=== PATIENT | male | born 1995 ===

== ENCOUNTER 2020-04-24 01:30 | Emergency (ER) | payer OTHER ==
[2020-04-24] MEDS ORDERED: LEVETIRACETAM 500 MG/5 ML VIAL IV ONE (02:01)
[2020-04-24] MEDS ORDERED: NA CHLORIDE 0.9% 500 ML ONE (02:02)
[2020-04-24] MEDS ORDERED: KETOROLAC 30 MG/ML INJ ONE (02:02)
[2020-04-24 02:05] LABS: Absolute Lymphocytes (CBC) 2.1 K/uL (0.7-4.9); Basophils % 0.5 % (0-1.3); Hematocrit 41.5 % (39.6-49.0); Lymphocytes % 19.5 % (15.3-44.8); MPV 8.8 fL (7.6-11.3)
[2020-04-24 02:33] LABS: Albumin 4.2 g/dL (3.4-5.0); Bilirubin Total 0.4 mg/dL (0.2-1.0); Magnesium 2.4 mg/dL (1.8-2.4); Potassium 3.7 mmol/L (3.5-5.1); Protein, Total 8.2 g/dL (6.4-8.2)
--- NOTE | 2020-04-24 03:08 | ER ---
Nurse's Notes [facility] Name: Victor Manuel Gant Age: 24 yrs Sex: Male : 1995 Arrival Date: 04/24/2020 Time: 01:38 Bed 7 Private MD: Diagnosis: Epileptic seizures related to external causes, not intractable Presentation: 04/24 01:35 Chief complaint: EMS states: patient came out from shower the guard saw him seizing rr5 lasted for 4 minutes. he has history of seizure but not taking medication. 01:35 Method Of Arrival: EMS: [email or web address] rr5 01:35 Coronavirus screen: Client denies travel out of the [place] in the last 14 days. At this rr5 time, the client does not indicate any symptoms associated with coronavirus-19. Ebola Screen: Patient negative for fever greater than or equal to 101.5 degrees Fahrenheit, and additional compatible Ebola Virus Disease symptoms Patient denies exposure to infectious person. Patient denies travel to an Ebola-affected area in the 21 days before illness onset. Initial Sepsis Screen: Does the patient meet any 2 criteria? No. Patient's initial sepsis screen is negative. Does the patient have a suspected source of infection? No. Patient's initial sepsis screen is negative. Risk Assessment: Do you want to hurt yourself or someone else? Patient reports no desire to harm self or others. Onset of symptoms was April 24, 2020. Care prior to arrival: IV initiated. 18 GA, in the right forearm, Glucose check: 133. 01:35 Acuity: JAMES 3 rr5 Historical: - Allergies: 01:41 No Known Allergies; rr5 - Home Meds: 01:41 None [Active]; rr5 - PMHx: 01:41 Seizures; rr5 - PSHx: 01:41 None; rr5 - Immunization history:: Adult Immunizations up to date. - Social history:: Smoking status: unknown Patient/guardian denies using alcohol, street drugs. Screenin:41 Abuse screen: Denies threats or abuse. Denies injuries from another. Nutritional rr5 screening: No deficits noted. Tuberculosis screening: No symptoms or risk factors identified. Fall Risk Fall in past 12 months (25 points). Secondary diagnosis (15 points) seizures, IV access (20 points). Total Rojas Fall Scale indicates High Risk Score (45 or more points). Fall prevention measures have been instituted. Side Rails Up X 2 Placed Close to Nursing Station Frequent Obs/Assessments Occuring As available patient and family educated on Fall Prevention Program and Strategies. Assessment: 01:35 General: Appears in no apparent distress. comfortable, Behavior is calm, cooperative, rr5 appropriate for age. Pain: Complains of pain in head Pain currently is 5 out of 10 on a pain scale. Quality of pain is described as aching, Pain began suddenly, Is intermittent. Neuro: Level of Consciousness is awake, alert, obeys commands, Oriented to person, place, time, Reports headache. Cardiovascular: Capillary refill < 3 seconds Patient's skin is warm and dry. Respiratory: Airway is patent Respiratory effort is even, unlabored, Respiratory pattern is regular, symmetrical. GI: No signs and/or symptoms were reported involving the gastrointestinal system. : No signs and/or symptoms were reported regarding the genitourinary system. EENT: No signs and/or symptoms were reported regarding the EENT system. Derm: Skin is intact, is healthy with good turgor, Skin temperature is warm. Musculoskeletal: Circulation, motion, and sensation intact. Capillary refill < 3 seconds. 02:35 Reassessment: Patient appears in no apparent distress at this time. Patient is alert, rr5 oriented x 3, equal unlabored respirations, skin warm/dry/pink. alert chatting with guard driver. 03:14 Reassessment: Patient appears in no apparent distress at this time. Patient is alert, rr5 oriented x 3, equal unlabored respirations, skin warm/dry/pink. discharge instruction given and explained without complaints made Patient states feeling better. Patient states symptoms have improved. Vital Signs: 01:35 BP 128 / 54; Pulse 80; Resp 16; Temp 98.2; Pulse Ox 98% ; Weight 79.38 kg; Height 6 ft. rr5 1 in. (185.42 cm); Pain 5/10; 02:30 BP 121 / 69; Pulse 79; Resp 15; Pulse Ox 98% ; rr5 03:16 BP 112 / 64; Pulse 75; Resp 17; Pulse Ox 99% ; rr5 01:35 Body Mass Index 23.09 (79.38 kg, 185.42 cm) rr5 [place] Coma Score: 01:35 Eye Response: spontaneous(4). Verbal Response: oriented(5). Motor Response: obeys rr5 commands(6). Total: 15. ED Course: 01:35 Arm band placed on right wrist. rr5 01:38 Patient arrived in ED. rr5 01:39 Kevin Hanley, RN is Primary Nurse. rr5 01:41 Maintain EMS IV. Dressing intact. Good blood return noted. Site clean \T\ dry. Gauge \T\ rr 5 site: G18 right Forearm. 01:41 Patient has correct armband on for positive identification. Bed in low position. Call rr5 light in reach. Side rails up X2. Seizure precautions initiated. Pulse ox on. NIBP on. 01:42 Nasir Hercules MD is Attending Physician. tw4 02:15 Triage completed. rr5 03:15 No provider procedures requiring assistance completed. IV discontinued, intact, rr5 bleeding controlled, No redness/swelling at site. Pressure dressing applied. Administered Medications: 01:58 Drug: TORadol 30 mg Route: IVP; Site: right forearm; rr5 02:55 Follow up: Response: No adverse reaction rr5 01:58 Drug: Keppra 1000 mg Route: IV; Rate: bolus; Site: right forearm; rr5 02:55 Follow up: Response: No adverse reaction; IV Status: Completed infusion; IV Intake: rr5 500ml Intake: 02:55 IV: 500ml; Total: 500ml. rr5 Outcome: 03:08 Discharge ordered by . tw4 03:15 Discharged to Law Enforcement rr5 03:15 Condition: stable 03:15 Discharge instructions given to patient, Instructed on discharge instructions, follow up and referral plans. medication usage, Demonstrated understanding of instructions, follow-up care, medications, Prescriptions given X 1. 03:18 Patient left the ED. rr5 Signatures: Nasir Hercules MD MD tw4 Kevin Hanley, RN RN rr5
--- NOTE | 2020-04-24 03:09 | EDPHYS ---
Physician Documentation [facility] Name: Victor Manuel Gant Age: 24 yrs Sex: Male : 1995 Arrival Date: 04/24/2020 Time: 01:38 Bed 7 Private MD: ED Physician Nasir Hercules HPI: 04/24 02:14 This 24 yrs old Male presents to ER via Unassigned with complaints of Seizure. tw4 02:14 The patient presents after having a single isolated seizure. Character of seizure(s): tw4 Loss of consciousness: it is not known if the patient experienced loss of consciousness. Seizure onset: just prior to arrival. Context: the seizure(s) was witnessed, by a bystander. Seizure Hx: it is unknown whether or not the patient has a previous seizure history. Associated injury: Head/face:. The patient has experienced similar episodes in the past, a few times. Historical: - Allergies: 01:41 No Known Allergies; rr5 - Home Meds: 01:41 None [Active]; rr5 - PMHx: 01:41 Seizures; rr5 - PSHx: 01:41 None; rr5 - Immunization history:: Adult Immunizations up to date. - Social history:: Smoking status: unknown Patient/guardian denies using alcohol, street drugs. ROS: 02:14 Constitutional: Negative for fever, chills, and weight loss, Cardiovascular: Negative tw4 for chest pain, palpitations, and edema, Respiratory: Negative for shortness of breath, cough, wheezing, and pleuritic chest pain, Abdomen/GI: Negative for abdominal pain, nausea, vomiting, diarrhea, and constipation, Back: Negative for injury and pain, MS/Extremity: Negative for injury and deformity, Skin: Negative for injury, rash, and discoloration. 02:14 Neuro: Positive for seizure activity. Exam: 02:14 Constitutional: This is a well developed, well nourished patient who is awake, alert, tw4 and in no acute distress. Chest/axilla: Normal chest wall appearance and motion. Nontender with no deformity. No lesions are appreciated. Cardiovascular: Regular rate and rhythm with a normal S1 and S2. No gallops, murmurs, or rubs. Normal PMI, no JVD. No pulse deficits. Respiratory: Lungs have equal breath sounds bilaterally, clear to auscultation and percussion. No rales, rhonchi or wheezes noted. No increased work of breathing, no retractions or nasal flaring. 02:14 Back: No spinal tenderness. No costovertebral tenderness. Full range of motion. MS/ Extremity: Pulses equal, no cyanosis. Neurovascular intact. Full, normal range of motion. Neuro: Awake and alert, GCS 15, oriented to person, place, time, and situation. Cranial nerves II-XII grossly intact. Motor strength 5/5 in all extremities. Sensory grossly intact. Cerebellar exam normal. Normal gait. 02:14 Head/face: Noted is contusion. Vital Signs: 01:35 BP 128 / 54; Pulse 80; Resp 16; Temp 98.2; Pulse Ox 98% ; Weight 79.38 kg; Height 6 ft. rr5 1 in. (185.42 cm); Pain 5/10; 02:30 BP 121 / 69; Pulse 79; Resp 15; Pulse Ox 98% ; rr5 03:16 BP 112 / 64; Pulse 75; Resp 17; Pulse Ox 99% ; rr5 01:35 Body Mass Index 23.09 (79.38 kg, 185.42 cm) rr5 [place] Coma Score: 01:35 Eye Response: spontaneous(4). Verbal Response: oriented(5). Motor Response: obeys rr5 commands(6). Total: 15. MDM: 01:42 Patient medically screened. tw4 03:10 Differential diagnosis: seizure. Data reviewed: vital signs, nurses notes. Data tw4 interpreted: Pulse oximetry: Interpretation: normal. Counseling: I had a detailed discussion with the patient and/or guardian regarding: the historical points, exam findings, and any diagnostic results supporting the discharge/admit diagnosis, lab results. Special discussion: I discussed with the patient/guardian in detail that at this point there is no indication for admission to the hospital. It is understood, however, that if the symptoms persist or worsen the patient needs to return immediately for re-evaluation. 04/24 01:43 Order name: CBC with Diff tw4 04/24 01:43 Order name: CMP tw4 04/24 01:43 Order name: Magnesium tw4 04/24 01:44 Order name: CBC with Automated Diff EDMS 04/24 01:44 Order name: Comprehensive Metabolic Panel EDMS 04/24 01:44 Order name: Magnesium EDMS Administered Medications: 01:58 Drug: TORadol 30 mg Route: IVP; Site: right forearm; rr5 02:55 Follow up: Response: No adverse reaction rr5 01:58 Drug: Keppra 1000 mg Route: IV; Rate: bolus; Site: right forearm; rr5 02:55 Follow up: Response: No adverse reaction; IV Status: Completed infusion; IV Intake: rr5 500ml Disposition: 04/24/20 03:08 Discharged to Home. Impression: Epileptic seizures related to external causes, not intractable. - Condition is Stable. - Discharge Instructions: Seizure, Adult. - Prescriptions for Keppra 500 mg Oral Tablet - take 1 tablet by ORAL route every 12 hours; 20 tablet. - Medication Reconciliation Form, Thank You Letter, Antibiotic Education, Prescription Opioid Use form. - Follow up: Private Physician; When: Upon discharge from the Emergency Department; Reason: Recheck today's complaints, Continuance of care, Re-evaluation by your physician. - Problem is new. - Symptoms have improved. Signatures: Dispatcher [employer] EDNasir Barrera MD MD tw4 Kevin Hanley RN RN rr5 Corrections: (The following items were deleted from the chart) 03:18 03:08 04/24/2020 03:08 Discharged to Home. Impression: Epileptic seizures related to rr5 external causes, not intractable. Condition is Stable. Forms are Medication Reconciliation Form, Thank You Letter, Antibiotic Education, Prescription Opioid Use. Follow up: Private Physician; When: Upon discharge from the Emergency Department; Reason: Recheck today's complaints, Continuance of care, Re-evaluation by your physician. Problem is new. Symptoms have improved. tw4
[2020-04-24 03:23] VITALS: TEMP 98.2
[2020-04-24 03:26] VITALS: BP 112/64; O2SAT 99
== END 2020-04-24 03:18 | disposition home or self-care (01) ==
LOC: ER 01:30
DX: G40.509 Epileptic seizures related to external causes, not intractable, without status epilepticus (principal)
CPT/HCPCS: 36415; 80053; 83735; 85025; 96365; 96375; 99284; J1953; J7040